=== PATIENT | male | born 1950 | race Caucasian/White ===

== ENCOUNTER 2024-08-15 15:41 | Outpatient (CLI) | payer MEDICARE | END 2024-08-15 15:42 | disposition home or self-care (01) | LOC: LABBT 15:41 | PROVIDERS: ATTEND Orthopaedic Surgery | DX: Z01.812 Encounter for preprocedural laboratory examination (principal); M54.50 Low back pain, unspecified; M54.17 Radiculopathy, lumbosacral region | CPT/HCPCS: 86850; 86900; 86901 ==